=== PATIENT | female | born 1965 | race Two or more races ===

== ENCOUNTER → 2021-08-12 | Outpatient (CLI) | payer SELFPAY ==
--- NOTE | 2021-08-12 14:41 | RAD ---
XR CHEST 2V INDICATION: HYPERGLYCEMIA . COMPARISON STUDY: None. FINDINGS: Lungs: Normal lung volume. No pulmonary mass or consolidation. 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 The tracheobronchial tree and hilar structures are normal. Pleura: No pleural effusion or pneumothorax. Heart and Mediastinum: The cardiomediastinal silhouette is normal. The great vessels of the thorax ar e normal. Bones and Soft Tissues: Degenerative changes of the spine. IMPRESSION: No acute cardiopulmonary process. Electronically signed by: Gagandeep Lerner MD (08/12/2021 2:38 PM) [id number]
== END ==
LOC: RAD 13:56
PROVIDERS: ATTEND Family Medicine
DX: E83.52 Hypercalcemia (principal); M47.814 Spondylosis without myelopathy or radiculopathy, thoracic region
CPT/HCPCS: 71046